=== PATIENT | male | born 1970 | race Caucasian/White ===

== ENCOUNTER 2017-03-22 07:41 | Emergency (ER) | payer BC ==
[~2017-03-22] VITALS: Ht 180.3 cm; Wt 110.9 kg
[2017-03-22] MEDS ORDERED: SERTRALINE HCL100 MG PO (07:53)
[2017-03-22] MEDS ORDERED: ADVIL ALLERGY1 EACH PO (07:53)
[2017-03-22 07:57] VITALS: BP 135/85
[2017-03-22] MEDS ORDERED: MEDROL DOSEPAK4 MG PO (07:59)
== END 2017-03-22 08:19 | disposition home or self-care (01) ==
LOC: EME 07:41
DX: L23.7 Allergic contact dermatitis due to plants, except food (principal); F32.9 Major depressive disorder, single episode, unspecified
CPT/HCPCS: 99281; 99283; J7512